=== PATIENT | male | born 1950 | race Caucasian/White ===

== ENCOUNTER 2023-12-05 23:16 | Emergency (ER) | payer MEDICARE, OTHER ==
[~2023-12-05] VITALS: Ht 180.3 cm; Wt 107.9 kg
[2023-12-06 00:03] VITALS: BP 105/59; TEMP 99.8; O2SAT 94
[2023-12-06] MEDS: ACETAMINOPHEN 500 MG TAB PO ONE (00:28)
== END 2023-12-06 01:53 | disposition home or self-care (01) ==
LOC: M ED 23:16
DX: R10.9 Unspecified abdominal pain (principal); K57.90 Diverticulosis of intestine, part unspecified, without perforation or abscess without bleeding; Z88.8 Allergy status to other drugs, medicaments and biological substances